=== PATIENT | female | born 1935 | race Caucasian/White ===

== ENCOUNTER → 2016-09-12 | Outpatient (CLI) | payer MEDICARE, OTHER ==
[~2016-09-12] MED LIST: ASPI-13 PO; ATOR40TA PO; CALC-586 PO; HYDR-4246 PO; LACT1CAP73 PO; LEVO75TA10 PO; MULT-795 PO; ONDA4TAB4 PO
== END ==
LOC: WC.BC 08:52
DX: Z12.31 Encounter for screening mammogram for malignant neoplasm of breast (principal); N64.59 Other signs and symptoms in breast; C50.912 Malignant neoplasm of unspecified site of left female breast; Z90.12 Acquired absence of left breast and nipple
CPT/HCPCS: 77063; G0202